=== PATIENT | male | born 2000 | race Two or more races ===

== ENCOUNTER → 2023-11-17 | Emergency (ER) | payer OTHER ==
[~2023-11-17] MED LIST: CETIRIZINE HCL 5 MG TABLET ONE; FAMOTIDINE 20 MG TAB ONE; predniSONE 20 MG TAB ONE
--- NOTE | 2023-11-17 15:50 | ER ---
Nurse's Notes [facility] Name: Yohan Batista Age: 22 yrs Sex: Male : 2000 Arrival Date: 11/17/2023 Time: 14:09 Bed IW1 Private MD: Diagnosis: Rash and other nonspecific skin eruption;Allergy, unspecified Presentation: 11/17 14:54 Chief complaint: Patient states: rash to arms, back and legs onset 4 days ago. cm10 Coronavirus screen: Vaccine status: Patient reports being unvaccinated. Client denies travel out of the [place] in the last 14 days. Ebola Screen: Patient denies travel to an Ebola-affected area in the 21 days before illness onset. No symptoms or risks identified at this time. 14:54 Method Of Arrival: Ambulatory 10 14:55 Initial Sepsis Screen: Does the patient meet any 2 criteria? No. Patient's initial cm10 sepsis screen is negative. Does the patient have a suspected source of infection? No. Patient's initial sepsis screen is negative. Risk Assessment: Do you want to hurt yourself or someone else? Patient reports no desire to harm self or others. Onset of symptoms was November 17, 2023. 14:55 Acuity: [facility] 4 cm10 Triage Assessment: 14:56 General: Appears in no apparent distress. comfortable, Behavior is calm, cooperative. cm10 Pain: Denies pain. Neuro: No deficits noted. Level of Consciousness is awake, alert, obeys commands, Oriented to person, place, time, situation, Appropriate for age. Cardiovascular: No deficits noted. Patient's skin is warm and dry. Respiratory: No deficits noted. Airway is patent Respiratory effort is even, unlabored, Respiratory pattern is regular, symmetrical. GI: No deficits noted. No signs and/or symptoms were reported involving the gastrointestinal system. : No deficits noted. No signs and/or symptoms were reported regarding the genitourinary system. Derm: No deficits noted. Skin is intact, Skin is pink, warm \T\ dry. Rash noted that is urticaria. Musculoskeletal: No deficits noted. Range of motion: intact in all extremities. Historical: - Allergies: 14:56 PENICILLINS; cm10 - Home Meds: 14:56 None [Active]; cm10 - PMHx: 14:56 None; cm10 - PSHx: 14:56 None; cm10 - Immunization history:: Adult Immunizations up to date. - Social history:: Smoking status: Patient denies any tobacco usage or history of. Screenin:57 [facility] ED Fall Risk Assessment (Adult) History of falling in the last 3 months, cm10 including since admission No falls in past 3 months (0 pts) Confusion or Disorientation No (0 pts) Intoxicated or Sedated No (0 pts) Impaired Gait No (0 pts) Mobility Assist Device Used No (0 pt) Altered Elimination No (0 pt) Score/Fall Risk Level 0 - 2 = Low Risk Oriented to surroundings, Maintained a safe environment, Hourly rounding (assess needs \T\ fall precautionary measures) done. Abuse screen: Denies threats or abuse. Denies injuries from another. Nutritional screening: No deficits noted. Tuberculosis screening: No symptoms or risk factors identified. Assessment: 16:25 Reassessment: Patient states feeling better. Patient states symptoms have improved. cm10 Vital Signs: 14:54 BP 156 / 92; Pulse 84; Resp 18; Temp 98.5(TE); Pulse Ox 100% ; cm10 14:55 Weight 72.57 kg; Height 5 ft. 10 in. ; cm10 14:55 Body Mass Index 22.96 (72.57 kg, 177.8 cm) cm10 ED Course: 14:18 Patient arrived in ED. mg5 14:18 Shannan Hatfield FNP-C is PHCP. snw 14:18 Dipesh Billingsley MD is Attending Physician. snw 14:56 Triage completed. cm10 14:56 Arm band placed on Patient placed in waiting room. cm10 14:57 Patient has correct armband on for positive identification. Provided Education on: ER cm10 process and procedures.. 15:02 Strep Sent. cm10 16:25 No provider procedures requiring assistance completed. Patient did not have IV access cm10 during this emergency room visit. Administered Medications: 15:02 Drug: Famotidine PO 20 mg PO once Route: PO; cm10 16:25 Follow up: Response: No adverse reaction cm10 15:02 Drug: ZyrTEC - Cetirizine PO 10 mg PO once Route: PO; cm10 16:25 Follow up: Response: No adverse reaction cm10 15:02 Drug: predniSONE PO 40 mg PO once Route: PO; cm10 16:25 Follow up: Response: No adverse reaction cm10 Medication: 14:57 VIS not applicable for this client. cm10 Outcome: 15:50 Discharge ordered by MD. bain 16:25 Discharged to home ambulatory, with family, cm10 16:25 Condition: good 16:25 Discharge instructions given to patient, Instructed on discharge instructions, follow up and referral plans. medication usage, Demonstrated understanding of instructions, follow-up care, medications, Prescriptions given X 3, 16:25 Patient left the ED. cm10 Signatures: Shannan Hatfield, WOMEN'S GARMENT FITTER-C WOMEN'S GARMENT FITTER-Shannonw Yolette Rojo, RN RN cm10 Izzy Ambriz mg5 Corrections: (The following items were deleted from the chart) 14:56 14:56 Allergies: No Known Allergies; cm10 cm10
--- NOTE | 2023-11-17 15:50 | EDPHYS ---
Physician Documentation [facility] Name: Yohan Batista Age: 22 yrs Sex: Male : 2000 Arrival Date: 11/17/2023 Time: 14:09 Bed IW1 Private MD: ED Physician Dipesh Billingsley HPI: 11/17 15:12 This 22 yrs old Male presents to ER via Ambulatory with complaints of Rash. snw 15:12 The patient's rash thought to be caused by an unknown cause. The rash is located on the snw body diffusely. The rash can be described as macular, papular. Onset: The symptoms/episode began/occurred suddenly. Severity of symptoms: At their worst the symptoms were mild moderate. Treatment given at home: none. The patient has not recently seen a physician. Historical: - Allergies: 14:56 PENICILLINS; cm10 - Home Meds: 14:56 None [Active]; cm10 - PMHx: 14:56 None; cm10 - PSHx: 14:56 None; cm10 - Immunization history:: Adult Immunizations up to date. - Social history:: Smoking status: Patient denies any tobacco usage or history of. ROS: 15:11 Constitutional: Negative for fever, chills, and weight loss, Eyes: Negative for injury, snw pain, redness, and discharge, ENT: Negative for injury, pain, and discharge, Neck: Negative for injury, pain, and swelling, Cardiovascular: Negative for chest pain, palpitations, and edema, Respiratory: Negative for shortness of breath, cough, wheezing, and pleuritic chest pain, Abdomen/GI: Negative for abdominal pain, nausea, vomiting, diarrhea, and constipation, Back: Negative for injury and pain, : Negative for injury, bleeding, discharge, and swelling, MS/Extremity: Negative for injury and deformity, Neuro: Negative for headache, weakness, numbness, tingling, and seizure, Psych: Negative for depression, anxiety, suicide ideation, homicidal ideation, and hallucinations, 15:11 Skin: Positive for rash, Exam: 15:10 Constitutional: This is a well developed, well nourished patient who is awake, alert, snw and in no acute distress. Head/Face: Normocephalic, atraumatic. Eyes: Pupils equal round and reactive to light, extra-ocular motions intact. Lids and lashes normal. Conjunctiva and sclera are non-icteric and not injected. Cornea within normal limits. Periorbital areas with no swelling, redness, or edema. Neck: Trachea midline, no thyromegaly or masses palpated, and no cervical lymphadenopathy. Supple, full range of motion without nuchal rigidity, or vertebral point tenderness. No Meningismus. Chest/axilla: Normal chest wall appearance and motion. Nontender with no deformity. No lesions are appreciated. Cardiovascular: Regular rate and rhythm with a normal S1 and S2. No gallops, murmurs, or rubs. Normal PMI, no JVD. No pulse deficits. Respiratory: Lungs have equal breath sounds bilaterally, clear to auscultation and percussion. No rales, rhonchi or wheezes noted. No increased work of breathing, no retractions or nasal flaring. Abdomen/GI: Soft, non-tender, with normal bowel sounds. No distension or tympany. No guarding or rebound. No evidence of tenderness throughout. Back: No spinal tenderness. No costovertebral tenderness. Full range of motion. Skin: Warm, dry with normal turgor. Normal color with maculopapular rash, no lesions, and no evidence of cellulitis. MS/ Extremity: Pulses equal, no cyanosis. Neurovascular intact. Full, normal range of motion. Neuro: Awake and alert, GCS 15, oriented to person, place, time, and situation. Cranial nerves II-XII grossly intact. Motor strength 5/5 in all extremities. Sensory grossly intact. Cerebellar exam normal. Normal gait. Psych: Awake, alert, with orientation to person, place and time. Behavior, mood, and affect are within normal limits. 15:10 ENT: TM's: not visable, because of cerumen, Nose: is normal, Mouth: is normal, Posterior pharynx: is normal, Voice: is normal, Vital Signs: 14:54 BP 156 / 92; Pulse 84; Resp 18; Temp 98.5(TE); Pulse Ox 100% ; cm10 14:55 Weight 72.57 kg; Height 5 ft. 10 in. ; cm10 14:55 Body Mass Index 22.96 (72.57 kg, 177.8 cm) cm10 MDM: 14:53 Patient medically screened. snw 15:12 Differential diagnosis: allergic reaction, contact dermatitis, insect bites. Data snw reviewed: vital signs, nurses notes, lab test result(s). I considered the following discharge prescriptions or medication management in the emergency department Medications were administered in the Emergency Department. See MAR. Counseling: I had a detailed discussion with the patient and/or guardian regarding the historical points, exam findings, and any diagnostic results supporting the discharge/admit diagnosis, lab results, the need for outpatient follow up, for definitive care, to return to the emergency department if symptoms worsen or persist or if there are any questions or concerns that arise at home. 11/17 14:55 Order name: Strep cm10 11/17 15:44 Order name: Throat Culture EDMS Administered Medications: 15:02 Drug: Famotidine PO 20 mg PO once Route: PO; cm10 16:25 Follow up: Response: No adverse reaction cm10 15:02 Drug: ZyrTEC - Cetirizine PO 10 mg PO once Route: PO; cm10 16:25 Follow up: Response: No adverse reaction cm10 15:02 Drug: predniSONE PO 40 mg PO once Route: PO; cm10 16:25 Follow up: Response: No adverse reaction cm10 Disposition Summary: 11/17/23 15:50 Discharge Ordered Notes: Location: Home snw Condition: Stable snw Diagnosis - Rash and other nonspecific skin eruption snw - Allergy, unspecified snw Followup: snw - With: Emergency Department - When: As needed - Reason: Worsening of condition Followup: snw - With: Private Physician - When: 2 - 3 days - Reason: Recheck today's complaints, Continuance of care, Re-evaluation by your physician Discharge Instructions: - Discharge Summary Sheet snw - Rash, Adult snw Forms: - Work release form snw - Medication Reconciliation Form snw - Thank You Letter snw - Antibiotic Education snw - Prescription Opioid Use snw - Patient Portal Instructions snw - Leadership Thank You Letter snw Prescriptions: - Zyrtec 10 mg Oral Tablet - take 1 tablet ORAL route once daily As needed; 20 tablet; Refills: 0, Product snw Selection Permitted - Prednisone 20 mg Oral Tablet - take 2 tablets ORAL route once daily for 5 days; 10 tablet; Refills: 0, Product snw Selection Permitted - Pepcid 20 mg Oral Tablet - take 1 tablet ORAL route once daily; 20 tablet; Refills: 0, Product Selection snw Permitted Signatures: Dispatcher [employer] EDShannan Arana FNP-C TOP CAGER-Yolette Cruz RN RN cm10 Corrections: (The following items were deleted from the chart) 14:56 14:56 Allergies: No Known Allergies; cm10 cm10
[2023-11-17 18:16] VITALS: BP 156/92; TEMP 98.5; O2SAT 100
== END ==
LOC: ER 14:09
DX: R21 Rash and other nonspecific skin eruption (principal); Z88.0 Allergy status to penicillin
CPT/HCPCS: 87070; 87081; 99283; J7512